=== PATIENT | female | born 1975 | race Caucasian/White ===

== ENCOUNTER 2019-08-07 22:40 | Emergency (ER) | payer OTHER ==
[~2019-08-07] VITALS: Ht 175.3 cm; Wt 77.1 kg
[2019-08-07] MEDS ORDERED: LEVOTHYROXINE25 MCG (23:06)
[2019-08-07] MEDS ORDERED: PROTONIX40 MG (23:07)
[2019-08-07] MEDS ORDERED: PEPCID AC20 MG (23:07)
[2019-08-08] MEDS ORDERED: BUTALBIT-ACETA1 EACH PO (02:22)
== END 2019-08-08 02:39 | disposition home or self-care (01) ==
LOC: ER 22:40
DX: G43.809 Other migraine, not intractable, without status migrainosus (principal)

== ENCOUNTER 2019-08-13 08:19 | Outpatient (CLI) | payer OTHER ==
[~2019-08-13 08:19] MED LIST: BUTALBIT-ACETA1 EACH PO; LEVOTHYROXINE25 MCG; PEPCID AC20 MG; PROTONIX40 MG
== END 2019-08-13 08:27 | disposition home or self-care (01) ==
LOC: TOM 08:19
DX: D33.2 Benign neoplasm of brain, unspecified (principal); C71.9 Malignant neoplasm of brain, unspecified; M26.609 Unspecified temporomandibular joint disorder, unspecified side; G44.89 Other headache syndrome

== ENCOUNTER 2021-10-31 09:34 | Outpatient (CLI) | payer OTHER | END 2021-10-31 10:21 | disposition home or self-care (01) | LOC: TOM 09:34 | PROVIDERS: ATTEND Family Medicine | DX: R10.2 Pelvic and perineal pain (principal); R10.31 Right lower quadrant pain; R10.9 Unspecified abdominal pain ==